=== PATIENT | male | born 1970 | race Caucasian/White ===

== ENCOUNTER 2016-09-04 05:14 | Inpatient (IN) | payer OTHER ==
[2016-08-29 17:39] LABS: WBC (NOT ORDERED) (RFLEX) 0 (0-5)
[2016-08-29 17:45] LABS: BASOPHILS 1.9 %; BASOPHILS ABSOLUTE 0.09 10/3/uL (0.0-0.16); EOSINOPHILS 3.5 %; EOSINOPHILS ABSOLUTE 0.17 10/3/uL (0.0-0.53); HEMATOCRIT 43.6 % (40.0-51.0); HEMOGLOBIN 14.6 g/dL (13.6-17.8); IMMATURE GRANULOCYTES ABSOLUTE 0.05 10/3/uL (0.0-0.11); LYMPHOCYTES 26.2 %; LYMPHOCYTES ABSOLUTE 1.27 10/3/uL (0.67-4.30); MANUAL DIFF NO %; MEAN CORPUS HGB CONC 33.5 g/dL (32.0-36.0); MEAN CORPUSCULAR HEMOGLOB 31.9 pg (26.0-34.0); MEAN CORPUSCULAR VOLUME 95.4 fL (80-100); MEAN PLATELET VOLUME 9.9 fL (9.2-13.0); MONOCYTES 10.3 %; NEUTROPHILS 57.1 %; NEUTROPHILS ABSOLUTE 2.76 10/3/uL (2.02-8.40); PLATELET COUNT 181 10/3/uL (150-400); RBC DISTRIBUTION WIDTH 13.6 % (12.0-16.0); RED CELL COUNT 4.57 10/6/uL (4.7-6.1); WHITE BLOOD CELLS 4.8 10/3/uL (4.5-10.5)
[2016-08-29 17:54] LABS: PARTIAL THROMBO TIME 29.5 SEC (22.5-37.2); PROTIME (NOT ORD) 12.7 SEC (12.0-14.5)
[2016-08-29 17:56] LABS: BUN (BLOOD UREA NITROGEN) 29 MG/DL (6-23); CALCIUM, SERUM 8.4 MG/DL (8.5-10.4); CHLORIDE, SERUM 102 MMOL/L (96-112); CO2 (CARBON DIOXIDE) 25 MMOL/L (24-34); CREATININE 0.61 MG/DL (0.70-1.30); GFR AFRICAN AMERICAN 137 ML/MIN (>=60); GFR NON AFRICAN AMERICAN 118 ML/MIN (>=60); GLUCOSE, SERUM 197 MG/DL (60-99); POTASSIUM, SERUM 4.4 MMOL/L (3.5-5.3); SODIUM, SERUM 136 MMOL/L (135-148)
[2016-08-29 18:02] LABS: ASCORBIC ACID (UR NOT ORDER) NEG (NEG); BILIRUBIN, URINE NEGATIVE (NEG); KETONE, URINE NEGATIVE (NEG); LEUKOCYTE ESTERASE(NOT OR NEG (NEG)
--- NOTE | ~2016-09-04 | OP ---
Record Of Operation [facility] [address] [place]. [address] NAME: JESSICA ROSA : 66 STATUS : ADM IN PAT#: [id number] AGE: 46 ADM/REG DATE : 09/04/16 MR#: [id number] REPORT SERV DATE: 09/04/16 DICTATED BY: CLINTON ARDON DATE: 09/04/16 REPORT STATUS : Draft TRANSCRIBED BY: MODL DATE: 09/04/16 DATE OF PROCEDURE: 09/04/2016 PREOPERATIVE DIAGNOSIS: Adenocarcinoma of the prostate clinical stage T2b Nba score 3+4=7, maximum PSA of 4.3. POSTOPERATIVE DIAGNOSIS: Adenocarcinoma of the prostate clinical stage T2b Satsuma score 3+4=7, maximum PSA of 4.3. PROCEDURE: Laparoscopic robot-assisted radical prostatectomy with bilateral pelvic node sampling. SURGEON: Clinton Ardon M.D. SALES DEVELOPMENT MANAGER: Mal Schumacher. ANESTHESIA: General and local. BLOOD LOSS: Estimated at 100 mL. FLUID REPLACEMENT: 3 L of crystalloid. DRAINS: A 15 mm Chris drain in prevesical space and an 18-Panamanian Ardon catheter per urethra with 12 mL of sterile water put in catheter balloon. INDICATION: 46-year-old male recently diagnosed with adenocarcinoma of the prostate as described above. He has consented to the above procedure. TECHNIQUE: The patient was identified, brought to the operating room, administered general anesthetic agent by the Anesthesia Service, and intubated. He was positioned in the dorsal lithotomy position. He was appropriately padded and secured to the table. The abdomen was clipped and the entire abdomen, penis, groin, scrotum, and perineum were prepped and draped in the usual sterile fashion. A 16-Panamanian Ardon catheter was passed in the bladder and left for drainage. All laparoscopic port sites were first infiltrated with 0.5% Marcaine plain. A 3 cm skin incision was made above the umbilicus, carried down through subcutaneous tissue and the rectus fascia. Holding sutures were placed in the rectus fascia and a transverse incision in the rectus fascia was made with an 11-blade scalpel. The underlying peritoneum was identified and balloon trocar was placed in the peritoneal space. Pneumoperitoneum was created by insufflating carbon dioxide and raising the abdominal pressure to 15 mmHg. It was held there through the entire case until otherwise specified. Under direct laparoscopic vision, three robot arm ports and two pastry assistant ports were placed. The patient was in steep Trendelenburg. I brought the da Kathleen robot and mated to the ports. I took down some adhesions between the sigmoid colon and left pelvic side wall. The peritoneum and cul-de-sac is opened to expose the seminal structures. The left seminal vesicle and vas deferens are normal. There is atrophy of the right vas deferens and the Record Of Operation [address] [place]. [address] NAME: JESSICA ROSA : 66 STATUS : ADM IN PAT#: [id number] AGE: 46 ADM/REG DATE : 09/04/16 MR#: [id number] REPORT SERV DATE: 09/04/16 DICTATED BY: CLINTON ARDON DATE: 09/04/16 REPORT STATUS : Draft TRANSCRIBED BY: WAI DATE: 09/04/16 right seminal vesicle is essentially absent. The vasa are clipped proximally and transected distally. The seminal vesicles were dissected out. Denonvilliers fascia was opened sharply and the rectum swept off the undersurface of the prostate all the way out to the apex. The neurovascular bundles were begun to be taken off the undersurface of the prostate. I divided the median umbilical ligaments and urachus near the umbilicus. The peritoneum was opened just lateral to the median umbilical ligaments on each side all the way to the vasa deferentia bilaterally. The bladder was swept off the anterior abdominal wall and symphysis pubis. The fat overlying the prostate gland was taken off with sharp dissection. The endopelvic fascia was pierced sharply at the prostatovesical junction and carried out distally to the puboprostatic ligaments. The dorsal venous complex was isolated. Taken frozen section from the right side. There were lot of adhesions between the prostate and the striated sphincter on the right side. Biopsy of this and I got back benign stromal which possibly could be prostatic according to the pathologist. I took some extra endopelvic fascia on the right side to encompass this. The dorsal venous complex was isolated, secured, and divided with laparoscopic NURIS stapling device. I oversewed the dorsal venous complex with 3-0 PDS. Fastidious hemostasis was achieved. I then mobilized neurovascular bundles off the apices bilaterally. I carried the dissection back to the posterior pedicles bilaterally. I switched to a 30-degree down lens and developed a plane with the bladder neck and the prostate. I opened the anterior bladder neck and elevated the Ardon catheter and came through the posterior bladder neck. Bladder neck was well preserved. I carried my dissection down and exposed the seminal structures. Lateral attachments of the bladder taken off the prostate sharply. The posterior pedicles were locked and secured with locking clips and then divided. The prostate is now mobile all the way out to the apex. The urethra was divided sharply and the posterior striated sphincter was divided. The specimen was inspected, appeared intact, placed in a specimen retrieval bag, and held for later retrieval. I lowered the abdominal pressure down to 7 mmHg and held it there through the remainder of the case. The pelvis was irrigated copiously. Fastidious hemostasis was achieved. I did a posterior reconstruction in two layers with 3-0 V-Loc. I did a modified Van Velthoven vesicourethral anastomosis with 3-0 V-Loc. When the anastomosis was complete, I inserted a new 18-Panamanian Ardon catheter. The anastomosis was tested by filling the bladder with 240 mL of saline. It held without extravasation. The bladder was then drained and 12 mL of sterile water inflated in the balloon. I then sampled the left and right obturator and external iliac lymph nodes. Locking clips and metallic clips were used for lymphostasis and hemostasis. The clips with the specimen bag was placed in a specimen retrieval bag and was held for later retrieval. The instrument was taken out of the robot arm port and a 15 mm Chris drain was placed through that port and left in the prevesical space. The port was removed. The drain was sutured to then skin with 2-0 Prolene. The strings a specimen bags were transferred out through the umbilical port. The pastry assistant 12 mm port was removed and the fascia was closed with a Michael-Homero endoscopic closure system. All the ports were taken out at low pressure. No port site bleeding was noted. Record Of Operation [facility] [address] [facility] [place]. [address] NAME: JESSICA ROSA : 66 STATUS : ADM IN PAT#: [id number] AGE: 46 ADM/REG DATE : 09/04/16 MR#: [id number] REPORT SERV DATE: 09/04/16 DICTATED BY: CLINTON ARDON DATE: 09/04/16 REPORT STATUS : Draft TRANSCRIBED BY: WAI DATE: 09/04/16 I delivered the specimens out through the umbilical wound. I closed the fascia with figure- of-eight 0 Vicryl sutures. Subcutaneous tissue and all ports were irrigated copiously. The skin of all ports closed with 4-0 Monocryl. Dressings were applied. The catheter was secured to the patient. He was awakened and taken to the recovery unit in stable and satisfactory condition. PROMISE/WAI Clinton Ardon M.D. / [id number] CC: Clinton Ardon M.D.
--- NOTE | ~2016-09-04 | HP ---
History And Physical [address] [address] NAME: JESSICA GUZMÁN : 66 STATUS : ADM IN PAT#: [id number] AGE: 46 ADM/REG DATE : 09/04/16 MR#: [id number] REPORT SERV DATE: 09/04/16 DICTATED BY: CLINTON ARDON DATE: 09/04/16 REPORT STATUS : Draft TRANSCRIBED BY: MODL DATE: 09/04/16 DATE OF ADMISSION: 09/04/2016 CHIEF COMPLAINT: Adenocarcinoma of the prostate, clinical stage T2b, Denison score 3+4=7, maximum PSA of 4.3. HISTORY OF PRESENT ILLNESS: Mr. Guzmán is a 46-year-old white male, recently diagnosed with adenocarcinoma of the prostate. An elevated PSA and prostate nodule led to the biopsy. Biopsy revealed Denison score 3+4=7. It was an MRI-directed biopsy. Different treatment options regarding the diagnosis were presented to the patient. He has decided to proceed with laparoscopic robot-assisted radical prostatectomy and bilateral pelvic node sampling. He will be admitted after that procedure. The patient denies any trouble with urination. He denies any erectile dysfunction. PAST MEDICAL HISTORY: Diabetes mellitus and anxiety. PAST SURGICAL HISTORY: None. MEDICATIONS: Metformin, mirtazapine, and Valium. ALLERGIES: NO KNOWN DRUG ALLERGIES. SOCIAL HISTORY: He is disabled. He is a tobacco user at one pack a day for 30 years. He denies any alcohol or drug use. REVIEW OF SYSTEMS: Significant for diabetes mellitus and anxiety. PHYSICAL EXAMINATION: GENERAL: Shows a well-developed, well-nourished, disheveled, thin white male. HEENT: He has very poor dentition. His sclerae anicteric. NECK: Supple. LUNGS: Clear. HEART: Regular rate and rhythm. ABDOMEN: Soft and nontender. No palpable abdominal masses. No inguinal hernia. : Penis uncircumcised, some phimosis. Meatus normal. Testes descended and nontender, no masses. No inguinal hernia. Prostate, small nodule in left lateral side. EXTREMITIES: Lower extremities, no deformities. IMPRESSION: Adenocarcinoma of the prostate, clinical stage T2b, Nba score 3+4=7, maximum PSA of 4.3. PLAN: Laparoscopic robot-assisted radical prostatectomy and bilateral pelvic node sampling. Potential complications of bleeding, infection, urinary incontinence, bladder neck obstruction, loss of ejaculate, erectile dysfunction and injury to adjacent structures such History And Physical [address] [place]. [address] NAME: JESSICA GUZMÁN : 66 STATUS : ADM IN PAT#: [id number] AGE: 46 ADM/REG DATE : 09/04/16 MR#: [id number] REPORT SERV DATE: 09/04/16 DICTATED BY: CLINTON ARDON DATE: 09/04/16 REPORT STATUS : Draft TRANSCRIBED BY: WAI DATE: 09/04/16 as bladder, ureters, rectum, colon, intestine, nerves have all been explained to the patient. He both manually and verbally consents to proceed. PF/WAI Clinton Ardon M.D. / [id number] CC: Clinton Ardon M.D.
[~2016-09-04 05:14] MED LIST: GLUCPH PO; NORCO1 TA1 PO; V2 PO
[2016-09-05 06:03] LABS: HEMOGLOBIN 11.7 g/dL (13.6-17.8)
[2016-09-05 06:05] LABS: HEMATOCRIT 33.6 % (40.0-51.0)
[2016-09-05 06:24] LABS: CALCIUM, SERUM 7.9 MG/DL (8.5-10.4); CHLORIDE, SERUM 103 MMOL/L (96-112); CO2 (CARBON DIOXIDE) 26 MMOL/L (24-34); GFR AFRICAN AMERICAN 129 ML/MIN (>=60); GFR NON AFRICAN AMERICAN 112 ML/MIN (>=60); POTASSIUM, SERUM 4.1 MMOL/L (3.5-5.3); SODIUM, SERUM 138 MMOL/L (135-148)
[2016-09-05 06:25] LABS: BUN (BLOOD UREA NITROGEN) 9 MG/DL (6-23); GLUCOSE, SERUM 124 MG/DL (60-99)
== END 2016-09-05 14:19 | disposition home or self-care (01) | DRG 708 ==
LOC: SDC/OF 05:14 → PACU 11:17 → 4SO 12:43
PROVIDERS: Urology
PROC: 0VT34ZZ Resection of Bilateral Seminal Vesicles, Percutaneous Endoscopic Approach (ICD-10-PCS; 2016-09-04)
PROC: 07BC4ZX Excision of Pelvis Lymphatic, Percutaneous Endoscopic Approach, Diagnostic (ICD-10-PCS; 2016-09-04)
PROC: 8E0W4CZ Robotic Assisted Procedure of Trunk Region, Percutaneous Endoscopic Approach (ICD-10-PCS; 2016-09-04)
PROC: 0VTQ4ZZ Resection of Bilateral Vas Deferens, Percutaneous Endoscopic Approach (ICD-10-PCS; 2016-09-04)
PROC: 0VT04ZZ Resection of Prostate, Percutaneous Endoscopic Approach (ICD-10-PCS; principal; 2016-09-04 06:30)
DX: C61 Malignant neoplasm of prostate (principal); F32.9 Major depressive disorder, single episode, unspecified; E11.9 Type 2 diabetes mellitus without complications; F41.9 Anxiety disorder, unspecified; Z79.84 Long term (current) use of oral hypoglycemic drugs; F17.210 Nicotine dependence, cigarettes, uncomplicated; G89.29 Other chronic pain; M54.5 Low back pain
CPT/HCPCS: 36415; 80048; 81001; 82962; 83735; 85014; 85018; 85025; 85610; 85730; 88305; 88307; 88309; 88331; 93005; A9270-GY; J0690; J1170; J1885; J2250; J2405; J2710; J3010